=== PATIENT | male | born 1995 | race Hispanic/Latino ===

== ENCOUNTER 2024-08-13 17:29 | Emergency (ER) | payer SELFPAY ==
[2024-08-13 17:51] VITALS: BP 129/81
[2024-08-13 18:36] LABS: % Basophils 0.4 % (0-2); % Eosinophils 1.1 % (0-6); % Immature Granulocytes 0.3 % (0-0.5); % Lymphocytes 22.7 % (20.5-51.1); % Monocytes 7.4 % (1.7-9.3); % Neutrophils 68.1 % (42.2-75.2); Absolute Eosinophils 0.1 10^3/uL (0-0.7); Absolute Lymphocytes 1.7 10^3/uL (1.2-3.4); Absolute Monocytes 0.5 10^3/uL (0.1-0.6); Absolute Neutrophils 4.9 10^3/uL (1.4-6.5); Hematocrit 46.1 % (39.0-52.0); Hemoglobin 16.2 g/dL (13.0-18.0); Mean Corp Hgb Conc. 35.1 g/dL (33.0-37.0); Mean Corpuscular Hgb 30.7 pg (27.0-31.0); Mean Corpuscular Volume 87.3 fL (80.0-94.0); Mean Platelet Volume 10.3 fL (7.4-10.4); Nucleated Red Blood Cells % 0 % (-); Platelet Count 208 10^3/uL (130-400); Red Blood Cell Count 5.28 10^6/uL (4.70-6.10); Red Cell Dist. Width 12.5 % (11.5-14.5); White Blood Cell Count 7.3 10^3/uL (4.8-10.8)
[2024-08-13 18:51] LABS: COVID-19 Antigen Negative (Negative)
[2024-08-13 19:00] LABS: ALT (SGPT) 39 U/L (0-50); AST (SGOT) 26 U/L (17-59); Albumin 4.9 g/dl (3.5-5.0); Alkaline Phosphatase 91 U/L (38-126); Blood Urea Nitrogen 16 mg/dl (9-20); Calcium 9.6 mg/dl (8.4-10.2); Carbon Dioxide 22 mmol/L (22-30); Chloride 102 mmol/L (98-107); Glucose 114 mg/dl (70-99); Potassium 3.9 mmol/L (3.5-5.1); Sodium 136 mmol/L (135-145); Total Bilirubin 1.8 mg/dl (0.2-1.3); Total Protein 7.7 g/dl (6.3-8.2); eGFR > 60.00
--- NOTE | 2024-08-13 21:17 | ED.GENMED ---
History of Present Illness
General
Chief Complaint: Blood Pressure Problem
Time Seen by Provider: 08/13/24 20:37
History of Present Illness
History of Present Illness:
29 male presents the emergency department for evaluation of elevated blood pressure as well as intermittent chest discomfort and shortness of breath occurring over the weekend. He is primarily [place]-speaking and interpretation was required
throughout entire visit. He reports that his headache and chest discomfort this week have since resolved. He has no past medical history.
Review of Systems
Review of Systems
Allergies reviewed?: Yes
All Other Systems: ROS reviewed and negative except as documented in HPI and ROS
Phy Exam
Physical Exam
Physical Exam:
GEN: Well appearing, NAD, WDWN
HEENT: Oral mucosa moist, no scleral icterus
Cardiac: Regular rate And rhythm, no murmurs
Lung: No respiratory distress, no tachypnea
MSK: No gross deformity or injuries
Skin: Good color, no pallor or jaundice, no rashes
Neuro: AO x3, moves all extremities freely
Psych: Calm, cooperative
Course
Orders/Labs/Results
Orders:
Orders
08/13/24 18:01
Electrocardiogram (*1) Urgent
Reason for Study: Chest Pain
EKG- Treatment ONCE
08/13/24 18:19
CMP [Comprehensive Metabolic Panel] Urgent
COVID-19 Antigen Urgent
Source: Nasal Swab
Complete Blood Count/With Diff Urgent
Influenza A+B Rapid Molecular Urgent
CHIN Source: Nasal Swab
Specimen Description:
Abnormal Lab Results
08/13/24
18:19
Glucose 114 H mg/dl
(70-99)
Total Bilirubin 1.8 H mg/dl
(0.2-1.3)
08/13/24 18:19
08/13/24 18:19
Vital Signs
Initial and Last Documented VS:
Initial Vital Signs
Pulse Resp BP Pulse Ox
77 16 129/81 99
08/13/24 17:51 08/13/24 17:51 08/13/24 17:51 08/13/24 17:51
Last Documented Vital Signs
Pulse Resp BP Pulse Ox
77 16 129/81 99
08/13/24 17:51 08/13/24 17:51 08/13/24 17:51 08/13/24 17:51
MDM/Problems Addressed
MDM/Problems Addressed:
Workup reassuring, patient is not hypertensive here and he complains of no further chest pain. Recommend [facility]
*Critical Care Note
Total Time (30-74mins, 75-104mins- exclusive of procedures): Not Applicable
ED Attending Note
-
Portions of this chart may have been created with voice recognition software.� Occasional wrong word or��sound alike� substitutions may have occurred due to the inherent limitations of voice recognition software.
Discharge Plan
Departure
Patient Disposition: Home (Routine Discharge)
Date of Disposition: 08/13/24
Time of Disposition: 21:17
Patient with high blood pressure during this ER visit?: No
Discharge Problem:
Atypical chest pain
Instructions: Chest pain
Activity Restrictions/Additional Instructions:
[phone]
[facility]
Located at the Hospital
Interventions
Interventions:
*Risk Screen - Suicide Last Done: 08/13/24 17:51
*General Assessment Last Done: 08/13/24 21:28
*Neglect/Abuse Screening Last Done: 08/13/24 17:51
ED- Fall Risk Assessment Last Done: 08/13/24 21:28
*ED COVID-19 Vaccine History Last Done: 08/13/24 17:51
*Nursing Disposition Last Done: 08/13/24 21:28
ED- Cardiac Assessment Last Done: 08/13/24 21:26
ED- Neurological Assessment Last Done: 08/13/24 21:26
ED- Pulmonary Assessment Last Done: 08/13/24 21:26
Discharge Date and Time
Discharge Date/Time: 08/13/24 21:30
Print Language: HEBREW
== END 2024-08-13 21:30 | disposition home or self-care (01) ==
LOC: EMR 17:29
PROVIDERS: Physician Assistant; EMERGENCY PHYSICIAN Emergency Medicine
DX: R07.89 Other chest pain (principal); R06.02 Shortness of breath; R03.0 Elevated blood-pressure reading, without diagnosis of hypertension; Z11.52 Encounter for screening for COVID-19
CPT/HCPCS: 99283; 80053; 85025; 87502; 87811; 93005